=== PATIENT | male | born 2000 | race Caucasian/White ===

== ENCOUNTER → 2021-10-01 | Outpatient (CLI) | payer OTHER | LOC: KOH-I 14:48 | DX: M51.25 Other intervertebral disc displacement, thoracolumbar region (principal) | CPT/HCPCS: 72070; 72100 ==

== ENCOUNTER 2021-10-06 17:36 | Emergency (ER) | payer OTHER | END 2021-10-06 19:26 | disposition home or self-care (01) | LOC: ER1 17:36 | DX: R31.9 Hematuria, unspecified (principal); F17.290 Nicotine dependence, other tobacco product, uncomplicated | CPT/HCPCS: 81001; 99283 ==